=== PATIENT | male | born 1980 | race Caucasian/White ===

== ENCOUNTER 2023-05-24 13:11 | Emergency (ER) | payer SELFPAY ==
[2023-05-24 13:30] VITALS: BP 148/87; PULSE 89; RESP 15; TEMP 37.1; O2SAT 97; BMI 29.8
--- NOTE | 2023-05-24 13:32 | ED_ITS ---
HPI - Ear Problem <Rich Combs PA-C - Last Filed: 05/24/23 15:36> General Chief complaint: Upper Respiratory Symptoms Stated complaint: both ears ache/cough/phlem Time Seen by Provider: 05/24/23 13:30 History of Present Illness HPI Narrative: This is a 42-year-old male presents to the emergency department due to a mild productive cough, sinus congestion, runny nose, and a dull aching ear pain bilaterally for the last 3 days. Denies any fevers, chest pain, shortness of breath, or any other concerning signs or symptoms. Related Data Allergies Allergy/AdvReac Type Severity Reaction Status Date / Time No Known Drug Allergies Allergy Verified 05/24/23 13:37 Review of Systems <Rich Combs PA-C - Last Filed: 05/24/23 15:36> Review of Systems Narrative: GENERAL: Denies chills, fatigue, malaise, fever, sweats. HEENT: Reports sinus congestion, productive cough ear pain, denies sore throat, difficulty swallowing, dizziness. RESPIRATORY: Denies dyspnea, cough, wheezing, hemoptysis, sputum. CARDIOVASCULAR: Denies chest pain, palpitations, orthopnea, edema, GASTROINTESTINAL: Denies nausea, vomiting, abdominal pain, diarrhea, constipation, melena. : Denies dysuria, frequency, incontinence, hematuria, urinary retention. MUSCULOSKELETAL: denies weakness, joint pain, or bony pain SKIN: Denies rash, skin lesions, or other NEUROLOGIC: Denies weakness, headache, numbness, change in speech, confusion, seizures, incoordination. PSYCHIATRIC: No concerning psychosocial issues. 12 point review of systems is negative except for those stated above Patient History <Rich Combs PA-C - Last Filed: 05/24/23 15:36> Social History Smoking Status: Unknown if ever smoked Exam <ADDI Michel Last Filed: 05/24/23 15:36> Narrative Exam Narrative: GENERAL: Well-developed patient, in mild distress. HEAD: Atraumatic. Normocephalic. EYES: Pupils equal round and reactive. Extraocular motions intact. No scleral icterus. No injection or drainage. ENT: Nose without bleeding, purulent drainage. Throat without erythema, tonsillar hypertrophy or exudate. Airway patent. Tympanic membranes not erythematous, mild dull bulging., NECK: Trachea midline. Non tender CARDIOVASCULAR: Regular rate and rhythm without murmurs, gallops, or rubs. RESPIRATORY: Clear to auscultation. Breath sounds equal bilaterally. No wheezes, rales, or rhonchi. GASTROINTESTINAL: Abdomen soft, non-tender, nondistended. EXTREMITIES: No edema or joint tenderness. BACK: Nontender without deformity or crepitance. No flank tenderness. NEURO: AOx3. SKIN: No rash or erythema of visible areas Initial Vital Signs Initial Vital Signs: Vital Signs Temperature 98.8 F 05/24/23 13:30 Pulse Rate 89 05/24/23 13:30 Respiratory Rate 15 05/24/23 13:30 Blood Pressure 148/87 H 05/24/23 13:30 Pulse Oximetry 97 05/24/23 13:30 Oxygen Delivery Method Room Air 05/24/23 13:30 <Ita Reardon DO - Last Filed: 05/29/23 10:06> Initial Vital Signs Initial Vital Signs: Vital Signs Temperature 98.8 F 05/24/23 13:30 Pulse Rate 89 05/24/23 13:30 Respiratory Rate 15 05/24/23 13:30 Blood Pressure 148/87 H 05/24/23 13:30 Pulse Oximetry 97 05/24/23 13:30 Oxygen Delivery Method Room Air 05/24/23 13:30 Course <Rich Combs PA-C - Last Filed: 05/24/23 15:36> Orders Ordered: ED Orders 05/24/23 13:44 Respiratory Panel (Film Array) Stat Vital Signs Vital signs: Vital Signs - 8 hr 05/24/23 13:30 05/24/23 15:25 Temperature 98.8 F Pulse Rate 89 90 Respiratory Rate 15 22 Blood Pressure 148/87 H 126/87 Pulse Oximetry 97 97 Oxygen Delivery Method Room Air Room Air <Ita Reardon DO - Last Filed: 05/29/23 10:06> Orders Ordered: ED Orders 05/24/23 13:44 Respiratory Panel (Film Array) Stat Vital Signs Vital signs: Vital Signs - 8 hr 05/24/23 13:30 05/24/23 15:25 Temperature 98.8 F Pulse Rate 89 90 Respiratory Rate 15 22 Blood Pressure 148/87 H 126/87 Pulse Oximetry 97 97 Oxygen Delivery Method Room Air Room Air Medical Decision Making <ADDI Michel Last Filed: 05/24/23 15:36> Lab Data Labs: Lab Results 05/24/23 Range/Units 13:44 Chlamy pneumoniae PCR Not detected (Not Detect) Adenovirus (PCR) Not detected (Not Detect) B.parapertussis DNA PCR Not detected (Not Detecte) Coronavirus OC43 (PCR) Not detected (Not Detect) Coronavirus HKU1 (PCR) Not detected (Not Detect) Coronavirus 229E (PCR) Not detected (Not Detect) SARS-CoV-2 (PCR) Not detected (Not Detecte) Coronavirus NL63 (PCR) Not detected (Not Detect) Human Metapneumovir PCR Not detected (Not Detect) Influenza Type A (PCR) Not detected (Not Detect) Influenza Type B (PCR) Not detected (Not Detect) M. pneumoniae (PCR) Not detected (Not Detect) Parainfluenza 1 (PCR) Not detected (Not Detect) Parainfluenza 2 (PCR) Not detected (Not Detect) Parainfluenza 3 (PCR) Not detected (Not Detect) Parainfluenza 4 (PCR) Not detected (Not Detect) RSV (PCR) Not detected (Not Detect) Entero/Rhino (PCR) Detected H (Not Detect) MDM Narrative Medical decision making narrative: MDM * differential diagnosis includes but not limited to rhino virus, viral URI, COVID, pneumonia, bacterial sinusitis * Prior records reviewed: Patient has not been to the emergency department the past. * My lab interpretation: Viral panel came back positive for rhino virus * My imgaing interpretation: None * Clinical Decision Rules/Scores evaluated: None * Independent discussions with: None ED Course: This is a 42-year-old male presents emergency department due to 3 days of URI symptoms. Denies any chest pain, shortness of breath, fevers and low concern for any kind pneumonia. Respiratory panel ordered which came back positive for rhino virus. Recommended symptomatic management for this self- limiting disease. Shared Decision Making: Discussed plan with the patient was comfortable with the plan. Social Considerations: None Disposition: Discharged to home <Ita Reardon DO - Last Filed: 05/29/23 10:06> Lab Data Labs: Lab Results 05/24/23 Range/Units 13:44 Chlamy pneumoniae PCR Not detected (Not Detect) Adenovirus (PCR) Not detected (Not Detect) B.parapertussis DNA PCR Not detected (Not Detecte) Coronavirus OC43 (PCR) Not detected (Not Detect) Coronavirus HKU1 (PCR) Not detected (Not Detect) Coronavirus 229E (PCR) Not detected (Not Detect) SARS-CoV-2 (PCR) Not detected (Not Detecte) Coronavirus NL63 (PCR) Not detected (Not Detect) Human Metapneumovir PCR Not detected (Not Detect) Influenza Type A (PCR) Not detected (Not Detect) Influenza Type B (PCR) Not detected (Not Detect) M. pneumoniae (PCR) Not detected (Not Detect) Parainfluenza 1 (PCR) Not detected (Not Detect) Parainfluenza 2 (PCR) Not detected (Not Detect) Parainfluenza 3 (PCR) Not detected (Not Detect) Parainfluenza 4 (PCR) Not detected (Not Detect) RSV (PCR) Not detected (Not Detect) Entero/Rhino (PCR) Detected H (Not Detect) Discharge Plan Departure Patient Disposition: Home Clinical Impression: Rhinovirus Activity Restrictions/Additional Instructions: Thank you for coming to the [facility] Emergency Department today. As we discussed your testing came back positive for rhino virus. This improves with out any antibiotics. I recommend DayQuil, NyQuil, Mucinex, rest, fluids help with your symptoms. This should improve over the next week or so. I hope you feel better soon. Please follow up with your primary care provider within a week if your symptoms continue. If you do not have a primary care provider please contact the [facility] Resource line at [phone]. They will ask some questions about your medical history and help you get set up with a provider in the community. Stand Alone Forms: Patient Portal/API, Work Release Note ED Sign-out <Ita Reardon, - Last Filed: 05/29/23 10:06> Cosign ED Attending Cosignature Attestation: I was available for consultation.
[2023-05-24 15:20] LABS: Adenovirus Not Detected (Not Detect); B. parapertussis Not Detected (Not Detecte); Bordetella pertussis Not Detected (Not Detect); Chlamydophila pneumoniae Not Detected (Not Detect); Coronavirus 229E Not Detected (Not Detect); Coronavirus HKU1 Not Detected (Not Detect); Coronavirus NL 63 Not Detected (Not Detect); Coronavirus OC43 Not Detected (Not Detect); Human Metapneumovirus Not Detected (Not Detect); Human Rhinovirus/Enterovirus Detected (Not Detect); Influenza A Not Detected (Not Detect); Influenza B Not Detected (Not Detect); Mycoplasma pneumoniae Not Detected (Not Detect); Parainfluenza Virus 1 Not Detected (Not Detect); Parainfluenza Virus 2 Not Detected (Not Detect); Parainfluenza Virus 3 Not Detected (Not Detect); Parainfluenza Virus 4 Not Detected (Not Detect); Respiratory Syncytial Virus Not Detected (Not Detect); SARS- CoV-2 Not Detected (Not Detecte)
[2023-05-24 15:25] VITALS: BP 126/87; PULSE 90; RESP 22; O2SAT 97
== END 2023-05-24 15:39 | disposition home or self-care (01) ==
PROVIDERS: Emergency Provider Physician Assistant Medical
DX: B34.8 Other viral infections of unspecified site (principal)
CPT/HCPCS: 87633; 99282

== ENCOUNTER 2023-08-10 12:40 | Emergency (ER) | payer SELFPAY ==
[2023-08-10 12:53] VITALS: BP 179/92; PULSE 96; RESP 18; TEMP 36.3; O2SAT 98; BMI 34.2
--- NOTE | 2023-08-10 13:11 | ED_ITS ---
HPI - Abdominal Pain <Tamia Jimenez PA-C - Last Filed: 08/10/23 18:20> General Chief Complaint: Abdominal Pain Stated Complaint: pain under ribcage Time Seen by Provider: 08/10/23 13:08 Source: patient Mode of arrival: Family Vehicle History of Present Illness HPI narrative: 42-year-old male here today for concerns about pain under his right ribcage. States he initially felt this pain over 2 months ago and it was intermittent for a little while and then resolved. States 2 days ago he was at work and he reached down to pick something up and felt such severe pain in the right upper quadrant that he fell to 1 knee and had tears in his eyes. States the pain has continued to be intermittent since then. Sometimes it is with certain movements or when he occasionally coughs but other times it is just at random even when he is just standing still. He has not been sick recently, no recent coughs or colds. Denies any urinary symptoms. Denies any back or flank pain. No known medical problems. He does not take any medications and has not tried anything for the pain so far. Related Data Allergies Allergy/AdvReac Type Severity Reaction Status Date / Time No Known Drug Allergies Allergy Verified 08/10/23 12:59 Review of Systems <Tamia Jimenez PA-C - Last Filed: 08/10/23 18:20> Review of Systems ROS Unobtainable: All systems reviewed & are unremarkable except as noted in HPI and below Patient History <Tamia Jimenez PA-C - Last Filed: 08/10/23 18:20> Social History Smoking Status: Former smoker Smoking Status: Former smoker tobacco type: cigarettes alcohol intake frequency: a few times a month Substance Use Type: marijuana Exam <Tamia Jimenez PA-C - Last Filed: 08/10/23 18:20> Narrative Exam Narrative: GENERAL: [42] year old patient appears stated age. Well-developed patient, in no acute distress. HEAD: Atraumatic. Normocephalic. EYES: Pupils equal round and reactive. Extraocular motions intact. No scleral icterus. No injection or drainage. ENT: Nose without bleeding, purulent drainage. Throat without erythema, tonsillar hypertrophy or exudate. Airway patent. NECK: Trachea midline. Non tender CARDIOVASCULAR: Regular rate and rhythm without murmurs, gallops, or rubs. RESPIRATORY: Clear to auscultation. Breath sounds equal bilaterally. No wheezes, rales, or rhonchi. GASTROINTESTINAL: Mild right upper quadrant tenderness to deep palpation. No guarding or rebound. No tenderness to palpation of the ribcage. No CVAT. EXTREMITIES: No edema or joint tenderness. BACK: Nontender without deformity or crepitus. No flank tenderness. NEURO: AOx3. SKIN: No rash or erythema of visible areas Initial Vital Signs Initial Vital Signs: Vital Signs Temperature 97.3 F L 08/10/23 12:53 Pulse Rate 96 H 08/10/23 12:53 Respiratory Rate 18 08/10/23 12:53 Blood Pressure 179/92 H 08/10/23 12:53 Pulse Oximetry 98 08/10/23 12:53 Oxygen Delivery Method Room Air 08/10/23 12:53 <Jackie Guerrero MD - Last Filed: 08/11/23 07:22> Initial Vital Signs Initial Vital Signs: Vital Signs Temperature 97.3 F L 08/10/23 12:53 Pulse Rate 96 H 08/10/23 12:53 Respiratory Rate 18 08/10/23 12:53 Blood Pressure 179/92 H 08/10/23 12:53 Pulse Oximetry 98 08/10/23 12:53 Oxygen Delivery Method Room Air 08/10/23 12:53 Course <Tamia Jimenez PA-C - Last Filed: 08/10/23 18:20> Orders Ordered: ED Orders 08/10/23 13:44 CXR [XR chest 2V] Stat US abdomen limited Stat 08/10/23 13:56 Urine Microscopic Stat 08/10/23 14:05 Complete Blood Count AUTO DIFF Stat Comprehensive Metabolic Panel Stat Lipase Stat Vital Signs Vital signs: Vital Signs - 8 hr 08/10/23 12:53 08/10/23 15:16 Temperature 97.3 F L 98.4 F Pulse Rate 96 H 79 Respiratory Rate 18 20 Blood Pressure 179/92 H 140/86 Pulse Oximetry 98 97 Oxygen Delivery Method Room Air Room Air <Jackie Guerrero MD - Last Filed: 08/11/23 07:22> Orders Ordered: ED Orders 08/10/23 13:44 CXR [XR chest 2V] Stat US abdomen limited Stat 08/10/23 13:56 Urine Microscopic Stat 08/10/23 14:05 Complete Blood Count AUTO DIFF Stat Comprehensive Metabolic Panel Stat Lipase Stat Vital Signs Vital signs: Vital Signs - 8 hr 08/10/23 12:53 08/10/23 15:16 Temperature 97.3 F L 98.4 F Pulse Rate 96 H 79 Respiratory Rate 18 20 Blood Pressure 179/92 H 140/86 Pulse Oximetry 98 97 Oxygen Delivery Method Room Air Room Air MDM - Abdominal Pain <Tamia L ADDI Jimenez - Last Filed: 08/10/23 18:20> Lab Data 08/10/23 14:05 08/10/23 14:05 Labs: Lab Results 08/10/23 08/10/23 Range/Units 13:56 14:05 WBC 5.9 (4.5-11.0) X10^3/uL RBC 4.59 (4.5-5.9) X10^6/uL Hgb 14.8 (13.5-17.5) g/dL Hct 43.4 (41-53) % MCV 94.5 (80-100) fL MCH 32.1 (26-34) PG MCHC 34.0 (30-36) % RDW 13.7 (11.6-14.8) % Plt Count 185 (150-400) X10^3/uL Neut % (Auto) 60.1 (50-75) % Lymph % (Auto) 28.4 (25-40) % [place] % (Auto) 9.4 (3-14) % Eos % (Auto) 1.1 L (2-4) % Baso % (Auto) 1.0 (0-2) % Neut # (Auto) 3500 (0946-7171) /uL Lymph # (Auto) 1700 (9918-3916) /uL [place] # (Auto) 600 (0-900) /uL Eos # (Auto) 100 (0-450) /uL Baso # (Auto) 100 (0-100) /uL Sodium 139 (137-145) mmol/L Potassium 4.1 (3.4-5.1) mmol/L Chloride 105 (98-107) mmol/L Carbon Dioxide 25 (22-32) mmol/L BUN 17 (9-20) mg/dL Creatinine 0.76 (0.66-1.25) mg/dL Estimated GFR > 60 (>60) mL/min BUN/Creatinine Ratio 22.4 H (6-22) Glucose 112 H (70-100) mg/dL Calcium 9.5 (8.4-10.2) mg/dL Total Bilirubin 0.8 (0.2-1.3) mg/dL AST 28 (17-59) IU/L ALT 22 (<50) IU/L Alkaline Phosphatase 82 (38-126) U/L Total Protein 8.7 H (6.3-8.2) g/dL Albumin 4.7 (3.5-5.0) g/dL Globulin 4.0 (1.7-4.1) g/dL Albumin/Globulin Ratio 1.2 (1.0-2.8) Lipase 74 (23-300) U/L Urine RBC 10-30/hpf H (0-5/HPF) Urine WBC 0-1/hpf (0-5/HPF) Ur Squamous Epith Cells None seen (0-5/HPF) Urine Bacteria None seen (None) Urine Mucus 1+ H (Negative) Ur Culture Indicated? Cult not indicated Vol Urine Centrifuged 10ml (spun) Point of care testing: Urine Dip Bedside Urine Glucose Negative Bedside Urine Bilirubin - Negative Bedside Urine Ketone - Negative Urine Specific [place] 1.025 Bedside Urine Occult Blood ++ Bedside Urine pH 6.0 Bedside Urine Protein + 30 Bedside Urine Urobilinogen - Negative Bedside Urine Nitrite - Negative Bedside Urine Leukocytes - Negative Esterase Imaging Data Chest x-ray: Radiologist's Impression: [address] [address] XRay Report Signed Patient: Kari Morris MR#: [id number] : 1980 Acct:[id number] Age/Sex: 42 / M Date of Service: 08/10/23 Loc: ED Accession Number: [id number] Procedure: XR chest 2V Ordering Provider: Tamia Jimenez P.A-C PROCEDURE: XR CHEST 2V INDICATIONS: RUQ pain TECHNIQUE: 2 views of the chest were acquired. COMPARISON: [facility], , US ABDOMEN LIMITED, 08/10/2023, 14:44. [facility], , XR CHEST 2 VIEWS, 03/29/2023, 13:56. FINDINGS: Surgical changes and devices: None. Lungs and pleura: Lungs are clear. No pleural effusions or pneumothorax. Mediastinum: Mediastinal contours are normal. Heart size is normal. Bones and chest wall: No suspicious bony abnormalities. Age-appropriate bony degenerative changes are seen. Linear radiopaque moderate can be seen involving the upper back posteriorly on both sides. IMPRESSION: No acute cardiopulmonary abnormality is seen. Radiopaque bodies are again seen involving the posterior back on both sides. Dictated by: Yariel Hooker M.D. on 08/10/2023 at 14:56 Approved by: Yariel Hooker M.D. on 08/10/2023 at 14:57 US - abdomen: Radiologist's Impression: [address] [address] Ultrasound Report Signed Patient: Kari Morris MR#: [id number] : 1980 Acct:[id number] Age/Sex: 42 / M Date of Service: 08/10/23 Loc: ED Accession Number: [id number] Procedure: US abdomen limited Ordering Provider: Tamia Jimenez P.A-C PROCEDURE: US ABDOMEN LIMITED INDICATIONS: RUQ pain TECHNIQUE: Real-time focused scanning was performed of the abdomen, with image documentation. COMPARISON: None. FINDINGS: The liver demonstrates normal size. The liver demonstrates generalized moderately increased echogenicity. This decreases ultrasound sensitivity for detection of hepatic masses. No findings of gallstones or sludge are seen. The gallbladder wall is not thickened, measuring 3 mm or less. No specific pericholecystic fluid is seen. The sonographic Dunbar sign is negative. There is no biliary dilatation, the common bile duct measures 4 mm. No significant pancreatic abnormality is seen on these images. IMPRESSION: The gallbladder demonstrates a normal sonographic appearance. No biliary dilatation is seen. The liver demonstrates increased echogenicity. This finding is nonspecific, yet it is most commonly attributed to fatty infiltration. Dictated by: Yariel Hooker M.D. on 08/10/2023 at 14:55 Approved by: Yariel Hooker M.D. on 08/10/2023 at 14:55 [facility] Narrative Medical decision making narrative: Patient's history and presentation are pretty nonspecific with intermittent right upper quadrant pain that sometimes is worsened with particular movements and the occasional cough but other times is random when he is still. The episodes not been associated with any nausea or vomiting. No fevers. He does not know any worsening of pain after eating. He has no flank or back pain. He has no urinary symptoms. He has no cough or recent respiratory illness. He is nontoxic, sitting comfortably in no apparent discomfort or distress, did not complain of pain the entire ER visit. We discussed that he has no signs or symptoms of infection or acute abdominal pathology he but he currently does not have a PCP to to switching insurance and he wanted a simple workup if possible. Therefore we ordered basic labs and a abdominal ultrasound and chest x-ray which were all normal/negative aside from some blood in his urine. He does not have flank pain or other symptoms suggesting a kidney stone so this could be a transient finding. 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 Recommend that he follow up with his PCP if the pain persists and we discussed signs and symptoms of worsening condition and when he was should return to the ED. patient understands and agrees with this plan Multiple etiologies for patient's symptoms considered including, but not limited to: Cholelithiasis, cholecystitis, kidney stone, muscle strain, costochondritis, liver pathology, pulmonary pathology such as pneumonia Labs reviewed and interpreted by myself: CBC, CMP, lipase Imaging reviewed: Abdominal ultrasound and chest x-ray Patient's symptoms improved over duration of stay with above-stated therapies. Findings and discharge diagnosis discussed with patient/family followed by verbalization of understanding Return precautions discussed with patient/family whom verbalize understanding of diagnosis and plan <Jackie Guerrero MD - Last Filed: 08/11/23 07:22> Lab Data Labs: Lab Results 08/10/23 08/10/23 Range/Units 13:56 14:05 WBC 5.9 (4.5-11.0) X10^3/uL RBC 4.59 (4.5-5.9) X10^6/uL Hgb 14.8 (13.5-17.5) g/dL Hct 43.4 (41-53) % MCV 94.5 (80-100) fL MCH 32.1 (26-34) PG MCHC 34.0 (30-36) % RDW 13.7 (11.6-14.8) % Plt Count 185 (150-400) X10^3/uL Neut % (Auto) 60.1 (50-75) % Lymph % (Auto) 28.4 (25-40) % [place] % (Auto) 9.4 (3-14) % Eos % (Auto) 1.1 L (2-4) % Baso % (Auto) 1.0 (0-2) % Neut # (Auto) 3500 (1642-6045) /uL Lymph # (Auto) 1700 (8337-1981) /uL [place] # (Auto) 600 (0-900) /uL Eos # (Auto) 100 (0-450) /uL Baso # (Auto) 100 (0-100) /uL Sodium 139 (137-145) mmol/L Potassium 4.1 (3.4-5.1) mmol/L Chloride 105 (98-107) mmol/L Carbon Dioxide 25 (22-32) mmol/L BUN 17 (9-20) mg/dL Creatinine 0.76 (0.66-1.25) mg/dL Estimated GFR > 60 (>60) mL/min BUN/Creatinine Ratio 22.4 H (6-22) Glucose 112 H (70-100) mg/dL Calcium 9.5 (8.4-10.2) mg/dL Total Bilirubin 0.8 (0.2-1.3) mg/dL AST 28 (17-59) IU/L ALT 22 (<50) IU/L Alkaline Phosphatase 82 (38-126) U/L Total Protein 8.7 H (6.3-8.2) g/dL Albumin 4.7 (3.5-5.0) g/dL Globulin 4.0 (1.7-4.1) g/dL Albumin/Globulin Ratio 1.2 (1.0-2.8) Lipase 74 (23-300) U/L Urine RBC 10-30/hpf H (0-5/HPF) Urine WBC 0-1/hpf (0-5/HPF) Ur Squamous Epith Cells None seen (0-5/HPF) Urine Bacteria None seen (None) Urine Mucus 1+ H (Negative) Ur Culture Indicated? Cult not indicated Vol Urine Centrifuged 10ml (spun) Point of care testing: Urine Dip Bedside Urine Glucose Negative Bedside Urine Bilirubin - Negative Bedside Urine Ketone - Negative Urine Specific [place] 1.025 Bedside Urine Occult Blood ++ Bedside Urine pH 6.0 Bedside Urine Protein + 30 Bedside Urine Urobilinogen - Negative Bedside Urine Nitrite - Negative Bedside Urine Leukocytes - Negative Esterase Discharge Plan Departure Patient Disposition: Home Clinical Impression: Abdominal pain, RUQ Instructions: DI for Abdominal Pain-Adult Activity Restrictions/Additional Instructions: You were seen today for abdominal pain in the right upper area of her abdomen. We did some tests today including blood work, an abdominal ultrasound, and an x- ray which were all normal. During no signs of any gallbladder infection or serious liver problem at this time. You did have some blood in her urine which can sometimes indicate a problem like a kidney stone but also may be a transient finding that goes away on its own. Your abdominal pain could be from a gallbladder issue like gallstones or from a muscle strain. I recommend follow up with a primary care physician in the next couple of weeks if your abdominal pain continues. Your primary care physician can also repeat a urine test to ensure that the blood in her urine has resolved. If you have any worsening or severe/intractable abdominal pain along with nausea, vomiting, fever, or other new or worsening symptoms please return to see us. Stand Alone Forms: Patient Portal/API, Work Release Note ED Sign-out <Jackie Guerrero MD - Last Filed: 08/11/23 07:22> Cosign ED Attending Cosfantaature Attestation: I was immediately available in the department for consultation throughout this patient's visit. Jackie Guerrero MD
--- NOTE | 2023-08-10 13:44 | DI.RAD.S_ITS ---
PROCEDURE: XR CHEST 2V INDICATIONS: RUQ pain TECHNIQUE: 2 views of the chest were acquired. COMPARISON: [facility], , US ABDOMEN LIMITED, 08/10/2023, 14:44. [facility], , XR CHEST 2 VIEWS, 03/29/2023, 13:56. FINDINGS: Surgical changes and devices: None. Lungs and pleura: Lungs are clear. No pleural effusions or pneumothorax. Mediastinum: Mediastinal contours are normal. Heart size is normal. Bones and chest wall: No suspicious bony abnormalities. Age-appropriate bony degenerative changes are seen. Linear radiopaque moderate can be seen involving the upper back posteriorly on both sides. IMPRESSION: No acute cardiopulmonary abnormality is seen. Radiopaque bodies are again seen involving the posterior back on both sides. Dictated by: Yariel Hooker M.D. on 08/10/2023 at 14:56 Approved by: Yariel Hooker M.D. on 08/10/2023 at 14:57
--- NOTE | 2023-08-10 13:44 | DI.US.S_ITS ---
PROCEDURE: US ABDOMEN LIMITED INDICATIONS: RUQ pain TECHNIQUE: Real-time focused scanning was performed of the abdomen, with image documentation. COMPARISON: None. FINDINGS: The liver demonstrates normal size. The liver demonstrates generalized moderately increased echogenicity. This decreases ultrasound sensitivity for detection of hepatic masses. No findings of gallstones or sludge are seen. The gallbladder wall is not thickened, measuring 3 mm or less. No specific pericholecystic fluid is seen. The sonographic Dunbar sign is negative. There is no biliary dilatation, the common bile duct measures 4 mm. No significant pancreatic abnormality is seen on these images. IMPRESSION: The gallbladder demonstrates a normal sonographic appearance. No biliary dilatation is seen. The liver demonstrates increased echogenicity. This finding is nonspecific, yet it is most commonly attributed to fatty infiltration. Dictated by: Yariel Hooker M.D. on 08/10/2023 at 14:55 Approved by: Yariel Hooker M.D. on 08/10/2023 at 14:55
[2023-08-10 14:13] LABS: Add Manual Diff / Slide Review NO; Basophils Absolute Auto 100 /uL (0-100); Eosinophils Absolute Auto 100 /uL (0-450); Eosinophils Percent Auto 1.1 % (2-4); Hematocrit 43.4 % (41-53); Hemoglobin 14.8 g/dL (13.5-17.5); Lymphocytes Absolute Auto 1700 /uL (1100-4500); Lymphocytes Percent Auto 28.4 % (25-40); Mean Corpuscular Hemoglobin 32.1 PG (26-34); Mean Corpuscular Volume 94.5 fL (80-100); Monocytes Absolute Auto 600 /uL (0-900); Monocytes Percent Auto 9.4 % (3-14); Neutrophils Absolute Auto 3500 /uL (1500-7000); Neutrophils Percent Auto 60.1 % (50-75); Platelet Count 185 X10^3/uL (150-400); Red Blood Cell Count 4.59 X10^6/uL (4.5-5.9); Red Cell Distribution Width 13.7 % (11.6-14.8); White Blood Cell Count 5.9 X10^3/uL (4.5-11.0)
[2023-08-10 14:24] LABS: Alanine Aminotransferase 22 IU/L (<50); Albumin 4.7 g/dL (3.5-5.0); Albumin Globulin Ratio 1.2 (1.0-2.8); Alkaline Phosphatase 82 U/L (38-126); Aspartate Aminotransferase 28 IU/L (17-59); BUN Creatinine Ratio 22.4 (6-22); Bilirubin Total 0.8 mg/dL (0.2-1.3); Blood Urea Nitrogen 17 mg/dL (9-20); Calcium 9.5 mg/dL (8.4-10.2); Carbon Dioxide 25 mmol/L (22-32); Chloride 105 mmol/L (98-107); Estimated Glomerular Filt Rate > 60 mL/min (>60); Glucose 112 mg/dL (70-100); HEMOLYSIS < 15 (0-50); Lipase 74 U/L (23-300); Potassium 4.1 mmol/L (3.4-5.1); Sodium 139 mmol/L (137-145); Total Protein 8.7 g/dL (6.3-8.2)
[2023-08-10 14:25] LABS: Bacteria Urine None Seen; Mucus Urine 1+ (Negative); RBC Urine 10-30/HPF (0-5/HPF); Squamous Epithelial Cell Urine None Seen (0-5/HPF); Urine Volume 10mL (spun); WBC Urine 0-1/HPF (0-5/HPF)
[2023-08-10 14:26] LABS: Culture Indicated Urine Cult Not Indicated
[2023-08-10 15:16] VITALS: BP 140/86; PULSE 79; RESP 20; TEMP 36.9; O2SAT 97
== END 2023-08-10 16:17 | disposition home or self-care (01) ==
PROVIDERS: Emergency Provider Physician Assistant
DX: R10.11 Right upper quadrant pain (principal)
CPT/HCPCS: 71046; 76705; 80053; 81003; 81015; 83690; 85025; 99282; 99284

== ENCOUNTER 2024-07-03 11:30 | Emergency (ER) | payer OTHER, SELFPAY ==
[2024-07-03 11:36] VITALS: BP 118/81; PULSE 90; RESP 18; TEMP 36.7; O2SAT 97; BMI 36.3
--- NOTE | 2024-07-03 11:42 | ED_ITS ---
HPI - Extremity Problem <Zohreh Santoyo PA-C - Last Filed: 07/03/24 12:31> General Chief complaint: Extremity Problem,Nontraumatic Stated complaint: L Shoulder/Elbow Px Time Seen by Provider: 07/03/24 11:42 Source: patient Mode of arrival: Ambulatory History of Present Illness HPI Narrative: Mr. Mroris is a very pleasant 43-year-old male with a past medical history of left elbow lateral epicondylitis and shoulder pain after an injury a few years ago who presents to the emergency department for acute on chronic left arm pain. Patient states about a week and a half ago he started developing pain of his left shoulder and left elbow that is very similar to when he injured it many years ago. 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 States that in the past when he was diagnosed with injuries he follow up with physical therapy which resolved his pain however he has been trying those same exercises at home without relief in symptoms. He went to [facility] when the pain 1st started and had an x-ray of his left shoulder done revealing glenohumeral joint degenerative change. Patient was prescribed 4 days of prednisone but states that his pain has continued preventing him from going into work today. States that he has a primary care doctor's appointment on Friday but he was hoping he could get a shot of Toradol or something else to help him with his arm pain. He denies any numbness, tingling, weakness, he describes pain and soreness over the anterior left shoulder, tip of the left elbow worse with movement and palpation. Denies chest pain, shortness of breath, nausea, vomiting, abdominal pain, neck pain, back pain, dizziness, lightheadedness, skin color change, fevers, chills, flu-like symptoms. Related Data Previous Rx's Medication Instructions Recorded methocarbamol 500 mg tablet 500 mg PO BEDTIME #10 tabs 07/03/24 naproxen 500 mg tablet 500 mg PO BID PRN pain #20 tabs 07/03/24 Allergies Allergy/AdvReac Type Severity Reaction Status Date / Time No Known Drug Allergies Allergy Verified 07/03/24 11:41 Review of Systems <Zohreh Santoyo PA-C - Last Filed: 07/03/24 12:31> Review of Systems ROS Unobtainable: All systems reviewed & are unremarkable except as noted in HPI and below Patient History <Zohreh Santoyo PA-C - Last Filed: 07/03/24 12:31> Social History Smoking Status: Former smoker Smoking Status: Former smoker tobacco type: cigarettes alcohol intake frequency: a few times a month Alcohol type: beer Exam <Zohreh Santoyo PA-C - Last Filed: 07/03/24 12:31> Narrative Exam Narrative: GENERAL: 43 year old patient appears stated age. Well-developed patient, in no acute distress. NECK: Trachea midline. Cervical ROM intact. CARDIOVASCULAR: Regular rate and rhythm. Brisk capillary refills on all fingertips and strong radial pulses bilaterally. RESPIRATORY: ?Nonlabored respirations. ?Speaking in clear, full sentences. ?Clear to auscultation. Breath sounds equal bilaterally. No wheezes, rales, or rhonchi. ? EXTREMITIES: Tenderness to palpation of anterior left shoulder and just distal to the tip of the olecranon. Full passive and active abduction/adduction of left shoulder, reproducible pain with crossing left arm across chest. Full flexion-extension strength of bilateral elbows. Strength and sensation intact to light touch in distribution of median, ulnar, radial nerves of the hand bilaterally. BACK: Nontender without deformity or crepitance. NEURO: AOx3. ?Clear speech. ?Moves all 4 extremities appropriately. SKIN: No rash or erythema of visible areas Initial Vital Signs Initial Vital Signs: Vital Signs Temperature 98.1 F 07/03/24 11:36 Pulse Rate 90 07/03/24 11:36 Respiratory Rate 18 07/03/24 11:36 Blood Pressure 118/81 07/03/24 11:36 Pulse Oximetry 97 07/03/24 11:36 Oxygen Delivery Method Room Air 07/03/24 11:36 <Jackie Guerrero MD - Last Filed: 07/03/24 13:53> Initial Vital Signs Initial Vital Signs: Vital Signs Temperature 98.1 F 07/03/24 11:36 Pulse Rate 90 07/03/24 11:36 Respiratory Rate 18 07/03/24 11:36 Blood Pressure 118/81 07/03/24 11:36 Pulse Oximetry 97 07/03/24 11:36 Oxygen Delivery Method Room Air 07/03/24 11:36 Course <Zohreh Santoyo PA-C - Last Filed: 07/03/24 12:31> Orders Ordered: Discontinued Medications Acetaminophen (Acetaminophen 325 Mg Tablet) 975 mg PO NOW ONE Stop: 07/03/24 12:21 Last Admin: 07/03/24 12:37 Dose: 975 mg Documented By: JANUSZ Ketorolac Tromethamine (Ketorolac 30 Mg/Ml Vial) 30 mg IM NOW ONE Stop: 07/03/24 12:21 Last Admin: 07/03/24 12:37 Dose: 30 mg Documented By: JANUSZ Vital Signs Vital signs: Vital Signs - 8 hr 07/03/24 11:36 07/03/24 12:48 Temperature 98.1 F Pulse Rate 90 79 Respiratory Rate 18 18 Blood Pressure 118/81 130/77 Pulse Oximetry 97 97 Oxygen Delivery Method Room Air Room Air <Jackie Guerrero MD - Last Filed: 07/03/24 13:53> Orders Ordered: Discontinued Medications Acetaminophen (Acetaminophen 325 Mg Tablet) 975 mg PO NOW ONE Stop: 07/03/24 12:21 Last Admin: 07/03/24 12:37 Dose: 975 mg Documented By: JANUSZ Ketorolac Tromethamine (Ketorolac 30 Mg/Ml Vial) 30 mg IM NOW ONE Stop: 07/03/24 12:21 Last Admin: 07/03/24 12:37 Dose: 30 mg Documented By: JANUSZ Vital Signs Vital signs: Vital Signs - 8 hr 07/03/24 11:36 07/03/24 12:48 Temperature 98.1 F Pulse Rate 90 79 Respiratory Rate 18 18 Blood Pressure 118/81 130/77 Pulse Oximetry 97 97 Oxygen Delivery Method Room Air Room Air MDM - Extremity (Nontraumatic) <Zohreh Santoyo PA-C - Last Filed: 07/03/24 12:31> Medical Records Attestation: I reviewed the patient's medical records. Medical records narrative: Reviewed record from [facility] urgent care visit from 1.5 week ago including left shoulder x-ray which revealed glenohumeral joint arthritis. Patient was prescribed prednisone. MDM Narrative Medical decision making narrative: 43 year-old male with a past medical history of left elbow lateral epicondylitis and shoulder pain after an injury a few years ago who presents to the emergency department for acute on chronic left arm pain. Differential diagnosis includes but is not limited to left shoulder arthritis, elbow arthritis, overuse injury, rotator cuff injury, lateral epicondylitis, elbow strain, sprain, etc. On exam the patient is in no acute distress, nontoxic-appearing, all vital signs within normal limits. He is experiencing acute on chronic pain from a prior injury and is just hoping for help with pain control until his primary care doctor's appointment on Friday. His left arm is still neurovascularly intact with good strength and good range of motion however he does have some pain with crossing the arm in front of the chest and with palpation of the elbow. Reports improvement in pain with Toradol prior, therefore we will proceed with 30 mg IM Toradol in the ED and send a prescription of naproxen and Robaxin to his pharmacy. Discussed risks of muscle relaxers. Advised avoiding overuse of this arm, gentle stretching, follow up with PCP. He was also provided with orthopedics follow-up. We discussed ED return precautions and he verbalized understanding. He is stable for discharge home. Work note provided. Discharge Plan Departure Patient Disposition: Home Clinical Impression: Arthritis of left glenohumeral joint Repetitive strain injury of left elbow Qualifiers: Encounter type: initial encounter Qualified Code(s): S56.912A - Strain of unspecified muscles, fascia and tendons at forearm level, left arm, initial encounter Instructions: DI for Elbow Pain Activity Restrictions/Additional Instructions: Today you were given an intramuscular injection of Toradol to help with your left shoulder arthritis in your left elbow overuse injury pain. Please use RICE therapy for your pain in addition to ibuprofen/acetaminophen. Rest the painful area. Ice the area of pain/swelling for at least 15 minutes, 4x a day. Compress the area of swelling using a brace, wrap, or splint if applied. Elevate the painful or swollen extremity by supporting it above the level of the heart with pillows when sitting or laying. You have been prescribed Naproxen for pain. You may also take Acetaminophen (tylenol) 650 mg every 4-6 hours for pain or 1000mg every 8 hours. Do not exceed 3000 mg of Tylenol a day as this can cause liver damage. Do not drink alcohol with either of these medications. You have been prescribed a muscle relaxer, methocarbamol, to take at night if needed. This medication can make you drowsy do not drink alcohol or operate heavy machinery/drive a car while taking muscle relaxers. Please continue to gently stretch the arm, use Voltaren gel on the shoulder, and follow up with your primary care doctor for further evaluation. You may also call to schedule an appointment with [facility] for further evaluation at [phone]. Please follow up with your primary care doctor within the next 2-3 days for ER follow-up. (If you do not have a PCP you can call [phone]. ?to schedule an appointment with an [facility] Primary Care Provider) IF YOU DEVELOP ANY NEW OR WORSENING SYMPTOMS, RETURN TO THE ER! Please read the attached instructions, they highlight more specific treatments and interventions for you at home. Thank you for letting me participate in your care, Zohreh Santoyo PA-C Prescriptions: New naproxen 500 mg tablet 500 mg PO BID PRN (Reason: pain) Qty: 20 0RF Rx Instructions: take with food methocarbamol 500 mg tablet 500 mg PO BEDTIME Qty: 10 0RF Stand Alone Forms: Patient Portal/API/Survey, Work Release Note ED Sign-out <Jackie Guerrero MD - Last Filed: 07/03/24 13:53> Cosign ED Attending Cosfantaature Attestation: I was immediately available in the department for consultation throughout this patient's visit. Jackie Guerrero MD
--- NOTE | 2024-07-03 11:54 | PC.NURSE ---
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 Patient received PT at that time and pain was significantly improved. Patient reports the pain is burning in quality and sometimes causes some numbness and tingling in his hand. Patient is working a new job where he does repetitive arm movements, takes ibuprofen which hasnt been effective for pain.
[2024-07-03] MEDS: ACETAMINOPHEN 325 MG TABLET 975 MG PO (12:37)
[2024-07-03] MEDS: KETOROLAC 30 MG/ML VIAL IM (12:37)
[2024-07-03 12:48] VITALS: BP 130/77; PULSE 79; RESP 18; O2SAT 97
== END 2024-07-03 12:45 | disposition home or self-care (01) ==
PROVIDERS: Emergency Provider Physician Assistant
DX: S56.912A Strain of unspecified muscles, fascia and tendons at forearm level, left arm, initial encounter (principal); M19.012 Primary osteoarthritis, left shoulder
CPT/HCPCS: 96372; 99283; J1885

== ENCOUNTER 2024-08-06 08:08 | Emergency (ER) | payer OTHER, SELFPAY ==
[2024-08-06 08:19] VITALS: BP 135/80; PULSE 83; RESP 16; TEMP 36.2; O2SAT 95; BMI 35.6
--- NOTE | 2024-08-06 09:18 | ED_ITS ---
HPI - Extremity Problem General Chief complaint: Extremity Problem,Nontraumatic Stated complaint: shoulder/ neck pain Time Seen by Provider: 08/06/24 09:11 Source: patient Mode of arrival: Family Vehicle History of Present Illness HPI Narrative: Patient presents with a history of chronic shoulder pain, initially stemming from a work-related injury a few years ago where he tore multiple structures in his arm. He was released back to full-time work in June of last year and had been doing well until the past month, when he began experiencing severe, sharp, and shooting pain in his left shoulder, which has now started affecting his r ight shoulder as well. The pain is exacerbated by certain movements and pressure on the muscles. He has been taking ibuprofen for pain management but has run out. He has an upcoming appointment with his orthopedic surgeon. The patient also reports numbness in his hands and a history of tearing chest muscles. There have been no recent falls or accidents. Past Medical History: Hernia surgery as an . Medications: Ibuprofen (currently out). Allergies: None mentioned. Surgical History: Hernia surgery as an infant. Related Data Previous Rx's Medication Instructions Recorded methocarbamol 500 mg tablet 500 mg PO BEDTIME #10 tabs 07/03/24 naproxen 500 mg tablet 500 mg PO BID PRN pain #20 tabs 07/03/24 ibuprofen 200 mg capsule 400 mg (2 x 200 mg) PO Q8H Mild 08/06/24 pain #30 caps Allergies Allergy/AdvReac Type Severity Reaction Status Date / Time No Known Drug Allergies Allergy Verified 07/03/24 11:41 Review of Systems Review of Systems Narrative: Constitutional: Denies recent falls or accidents. Respiratory: Denies chest pain or shortness of breath. Skin: Denies rash, warmth, or erythema. Musculoskeletal: Reports severe, sharp, and shooting pain in the left shoulder, now affecting the right shoulder as well. Pain exacerbated by movement and pressure. Neurological: Reports numbness in hands. Patient History Social History Smoking Status: Former smoker Smoking Status: Former smoker tobacco type: cigarettes alcohol intake frequency: a few times a month Alcohol type: beer Exam Narrative Exam Narrative: General: Well appearing, well nourished, in no distress. Skin: Clear skin over bilateral shoulders and back, no vesicular rash, no warmth or erythema. Head: Normocephalic, atraumatic. HEENT: Conjunctiva clear, EOM intact, PERRL, mucous membranes moist. Neck: Supple, normal ROM. Heart: Regular rate and rhythm, no murmur or gallop or rubs. Lungs: Clear to auscultation. No rales, rhonchi, or wheezes. Abdomen: Soft and nontender. Bowel sounds normal. No mass or hernia. Back: Spine normal without deformity or tenderness, no CVA tenderness. Extremities: No deformities, edema. Peripheral pulses intact. Musculoskeletal: No pain on passive range of motion in bilateral shoulders, point tenderness over the right trapezius muscle. Full strength in the bilateral upper extremities, no significant sensory deficit, negative Spurling maneuver Neurologic: CN 2-12 normal. Normal sensation and motor exam. Psychiatric: Oriented X3. Normal mood and affect. Initial Vital Signs Initial Vital Signs: Vital Signs Temperature 97.1 F L 08/06/24 08:19 Pulse Rate 83 08/06/24 08:19 Respiratory Rate 16 08/06/24 08:19 Blood Pressure 135/80 08/06/24 08:19 Pulse Oximetry 95 08/06/24 08:19 Oxygen Delivery Method Room Air 08/06/24 08:19 Course Orders Ordered: Discontinued Medications Ibuprofen (Ibuprofen 400 Mg Tablet) 400 mg PO NOW ONE Stop: 08/06/24 09:18 Lidocaine (Lidocaine 5% Patch) 1 each TOP NOW ONE Stop: 08/06/24 09:18 Vital Signs Vital signs: Vital Signs - 8 hr 08/06/24 08:19 Temperature 97.1 F L Pulse Rate 83 Respiratory Rate 16 Blood Pressure 135/80 Pulse Oximetry 95 Oxygen Delivery Method Room Air MDM - Extremity (Nontraumatic) MDM Narrative Medical decision making narrative: INITIAL EVALUATION AND PLAN: - Suspected chronic musculoskeletal pain, possibly with nerve involvement. - Prescribe lidocaine patch for pain management. - Provide ibuprofen and write a new prescription. - Recommend follow-up with orthopedic surgeon for further evaluation, including potential MRI of the cervical spine. - Consider physical therapy in the future. Differential diagnosis includes but is not limited to: Musculoskeletal pain, septic joint, fracture, ligamentous injury, cervical spine injury or nerve impingement Patient well-appearing and in no acute distress, stable vital signs coming in with chronic shoulder pain, patient has no midline neck pain negative Spurling maneuver good strength in the bilateral upper extremities doubt acute nerve impingement requiring acute MRI or surgical intervention. Patient has no nuchal rigidity no fevers no chills low suspicion for spinal epidural abscess diskitis or other surgical pathology. Patient will be given lidocaine patch, ibuprofen and he already has appointment with Orthopedics for consideration of potential cervical MRI or further eval of ligament injuries. Discharge Plan Departure Clinical Impression: Musculoskeletal arm pain Prescriptions: New ibuprofen 200 mg capsule 400 mg PO Q8H Qty: 30 0RF Rx Instructions: Please do not take with any other NSAIDs such as naproxen or other doses of ibuprofen and containing medications No Action naproxen 500 mg tablet 500 mg PO BID PRN (Reason: pain) Qty: 20 0RF Rx Instructions: take with food methocarbamol 500 mg tablet 500 mg PO BEDTIME Qty: 10 0RF SNF Discharge Plan Provider Discharge comment: You were seen in the emergency department today for chronic shoulder pain, please follow-up with the orthopedic doctor for further evaluation and consideration for potential MRI, please continue with lidocaine patches, ibuprofen in order to help with your pain. Please return to the ED for worsening symptoms.
[2024-08-06] MEDS: IBUPROFEN 400 MG TABLET PO (09:31)
[2024-08-06] MEDS: LIDOCAINE 5% PATCH 1 EACH TOP (09:31)
[2024-08-06 09:38] VITALS: BP 133/79; PULSE 79; RESP 20; TEMP 36.6; O2SAT 100
== END 2024-08-06 09:39 | disposition home or self-care (01) ==
PROVIDERS: Emergency Provider Emergency Medicine
DX: M25.512 Pain in left shoulder (principal); M25.511 Pain in right shoulder; R20.0 Anesthesia of skin
CPT/HCPCS: 99283

== ENCOUNTER → 2025-04-22 11:46 | Outpatient (CLI) | payer OTHER, SELFPAY | LOC: LAB 11:46 | PROVIDERS: PCP Registered Nurse; Visit Provider Nurse Practitioner Family | DX: J02.9 Acute pharyngitis, unspecified (principal) | CPT/HCPCS: 87070; 87077; 87147 ==

== ENCOUNTER → 2025-05-18 07:58 | Outpatient (CLI) | payer OTHER, SELFPAY ==
--- NOTE | 2025-05-18 07:59 | DI.US.S_ITS ---
PROCEDURE: US SOFT TISSUE HEAD AND NECK INDICATIONS: acupuncture needle FB, cerv sp, RT shoulder TECHNIQUE: Real-time scanning was performed of the neck region of interest, with image documentation. COMPARISON: None. FINDINGS: No foreign bodies identified in the right neck soft tissues at the area of clinical interest. IMPRESSION: No foreign body identified by ultrasound imaging. Dictated by: Lucy Alicia MD, PhD on 05/18/2025 at 10:07 Approved by: Lucy Alicia MD, PhD on 05/18/2025 at 10:08
== END ==
PROVIDERS: PCP Registered Nurse; Referring Provider Registered Nurse; Visit Provider Surgery
DX: M79.5 Residual foreign body in soft tissue (principal)
CPT/HCPCS: 76705